=== PATIENT | female | born 1990 | race Caucasian/White ===

== ENCOUNTER 2016-12-21 17:53 | Inpatient (IN) ==
--- NOTE | 2016-12-21 17:12 | OB/GYN History & Physical ---
Date of Encounter: 12/21/16 Time of Encounter: 17:05 Assessment and Plan (1) 39 weeks gestation of Current visit: Yes Status: Acute Admit to labor and delivery for expectant management for vaginal delivery Patient is GBS negative Patient is planning an epidural for pain control Vaginal delivery is expected POC discussed with Dr Winston History of Present Illness Chief complaint: Contractions HPI: Ms. Harris is a 26 year old female at 39 weeks and 2 days gestation. She arives to labor and delivery with c/o contractions today at noon that were 5 minutes apart. She denies leaking of fluid, and vaginal bleeding. She states positive movement. She denies headahce, vision changes, and epigastric pain. She is GBS negative and her blood type in O positive. She has a history of MTHFR and states she has been taking a daily baby asprin. Past Med Surg Social Fam HX - Past Medical History Medical history: no medical history Psychiatric history: no psych history - Social History Smoking Status: Never smoker Smokeless Tobacco Status: No Alcohol use: none Drug use: none - Family History Mother Hx Family Cardiac Disorders: Yes (HTN, heart attack) Obstetrical History - Pregnancies : 4 Para: 1 Term: 1 : 0 Ab's: 2 Livin Medications and Allergies Aspirin [Aspirin] 1 tab PO DAILY 12/21/16 [History] Folic Acid [Folic Acid] 1 tab PO DAILY 12/21/16 [History] Vit/Iron Fumarate/FA [ Tablet] 1 tab PO DAILY 12/21/16 [History ] Allergies No Known Allergies Allergy (Verified 12/21/16 16:56) Review of System OB All systems PM: reviewed and no additional remarkable complaints except as stated Exam - Constitutional Constitutional: well developed, well nourished, no acute distress, average body habitus - HEENT HEENT: Normocephaly, Mucus Membranes Moist - Neck Neck exam: full ROM, normal inspection, supple - Lungs Respiratory exam: CTAB - Cardiovascular Cardiovascular exam: RRR, +S1, +S2 - Abdomen Abdomen: Present: bowel sounds normal, gravid, non tender - Extremities Extremities exam: full ROM, normal inspection, radial pulses palpable and symetrical Deep Tendon Reflex Grade: 2+ Normal - Vagina Vagina: Present: normal moisture - Cervix Dilation: 4 (per RN exam) Effacement: 90 (per RN exam) Station: -1 - Uterus Uterus exam: Present: normal size, normal contour Results All other labs normal.
[~2016-12-21 17:53] MED LIST: D5% in 0.45% NACL 1,000 ML IVC SCH; Famotidine 20 MG/2 ML VIAL IVP PRN; Naloxone 0.4 MG/ML INJ IVP PRN; Ringers Solution, Lactated 1,000 ML IVC SCH
[2016-12-21 18:03] LABS: Basophils # 0.1 K/mcL (0.0-0.2); Basophils % 0.2 %; Eosinophils % 0.1 %; Hematocrit 40.3 % (35.3-44.9); Hemoglobin 13.6 g/dL (11.5-15.4); Immature Granulocytes % 0.7 % (0-4); Immature Platelets 6.7 % (1.1-6.1); Lymphocytes # 2.6 K/mcL (0.6-4.6); Lymphocytes % 12.6 %; Mean Corpuscular HGB Conc 33.7 g/dL (31.6-35.5); Mean Corpuscular Hemoglobin 30.8 pg (28.0-33.3); Mean Corpuscular Volume 91.2 fL (83.0-100.0); Mean Platelet Volume 10.3 fL (9.4-12.4); Monocytes # 1.4 K/mcL (0.0-1.3); Monocytes % 6.8 %; Neutrophils # 16.4 K/mcL (1.6-8.9); Platelet Count 191 K/mcL (140-400); Red Blood Count 4.42 M/mcL (3.82-4.97); Red Cell Distribution Width 12.9 % (11.5-14.5); Segmented Neutrophils % 79.6 %
--- NOTE | 2016-12-21 18:28 | Anesthesia Evaluation PreOp ---
Date of Encounter: 12/21/16 Time of Encounter: 18:26 - Past History Planned Operation: ZENA Cardiac History: Denies any Significant Hx Pulmonary History: Denies Any Significant HX HAIRSPRING STUDDER History: Denies Any Significant HX Other Medical History: Denies Any Significant HX Anesthesia History: No Prior Anesthetic Complications (denies personal h/o complications with GA or NA; denies family h/o anesthesia complications), Past Anesthesia (T&A, ZENA) : Yes Test: Positive Alcohol Use: none Drug use: none Medications and Allergies Aspirin [Aspirin] 1 tab PO DAILY 12/21/16 [History] Folic Acid [Folic Acid] 1 tab PO DAILY 12/21/16 [History] Vit/Iron Fumarate/FA [ Tablet] 1 tab PO DAILY 12/21/16 [History ] Allergies No Known Allergies Allergy (Verified 12/21/16 16:56) - Meds/Allergy Pre-op Review Medications Reviewed: Yes Allergies Reviewed: Yes Beta Blockers on Current Med List: No Anesthesia Results - Labs 12/21/16 17:55 Anesthesia Exam 120/66, HR78, RR16 O2 Sat Height 1.75 m Weight 84.3 kg NPO (# of Hours): NPO solids since 12/21 @1200 Pain Scale: 8 Pain Scale Used: Numeric (1 - 10) - HEENT Pupil (Motor): Pupils equal Mallampati: II Teeth: Normal Oral Opening: Greater than 3 - HAIRSPRING STUDDER LOC: Oriented HAIRSPRING STUDDER Motor: Normal RUE, Normal LUE, Normal RLE, Normal LLE, Normal Face HAIRSPRING STUDDER Sensory: Normal: RUE, LUE, RLE, LLE, Face - Cardiac Rhythm: Regular Murmur: None - Pulmonary Breath Sounds: bilateral Clear Respiratory Effort: Symmetrical Anesthesia Assess/Plan ASA Score: 2 Modified Stephan Scale for Level of Consciousness: Cooperative, oriented, and tranquil Anesthetic Plan: Regional Autologous Blood: No Monitoring Plan: Standard Monitors Recovery Plan: Other
[2016-12-21] MEDS ORDERED: Bupivacaine-MPF 0.25% 10 ML VIAL EP ONE (18:30)
[2016-12-21] MEDS ORDERED: Epidural Premix (fent/bupiv) 110 ML EP SCH (18:30)
[2016-12-21] MEDS ORDERED: *HR* FentaNYL (PF) 100 MCG/2 ML VIAL EP ONE (18:30)
[2016-12-21] MEDS ORDERED: Epidural Premix (fent/bupiv) 110 ML EP ONE (18:33)
[2016-12-21] MEDS ORDERED: *HR* FentaNYL (PF) 100 MCG/2 ML VIAL ONE (18:33)
[2016-12-21] MEDS ORDERED: Bupivacaine-MPF 0.25% 10 ML VIAL ONE (18:33)
--- NOTE | 2016-12-21 19:50 | Anesthesia Procedures ---
Date of Encounter: 12/21/16 Time of Encounter: 19:27 (in room) Procedures: Anesthesia - Epidural/Spinal Patient ID/Chart reviewed: Yes Patient examined: Yes OB Eval: Gestational age: 39 weeks 1 day OB Eval: : 4 OB Eval: Hx Para: 1 OB Eval: Dilated at (cm): 4 OB Eval: Contractions: Non-stressed pattern Consent Obtained: Yes Supplemental Oxygen: None/Room Air Site Prep: Aseptic Technique, Sterile prep and drape, Povidone-Iodine 1% Patient position: upright Local Anesthetic: Lidocaine 1% Amount of Local Anesthetic used: 3 Touhy Needle Gauge: 18 Touhy Needle Depth (cm): 4 Catheter Depth at Skin (cm): 11 (placed at 1933) Test Dose (1.5% Lido + Epi): Volume given (mls): 5 (given in 2 equally divided doses over a period of 5 min) Test Dose Result: Negative Loading Dose: 0.25% Marcaine (mls): 5 Loading Dose: Fentanyl (mcg): 100 Loading Dose Administered: Thru Catheter Infusion Med: 0.125% Bupivacaine w/ 2 mcg/ml Fentanyl Infusion Rate (mls/hr): 13 (w/ demand bolus of 4mL q20min) Catheter Secured in Place: Tegaderm, Tape Interspace Used: L4-L5 Loss of Resistance (ELMER): Yes Blood: No CSF: No Paresthesia: Yes (LLE) Vitals + FHT's: please see L&D RN's documentation
--- NOTE | 2016-12-21 20:00 | OB Labor Progress Note ---
Date of Encounter: 12/21/16 Time of Encounter: 19:58 Labor Progress Note - Subjective Subjective: Patient resting in bed comfortably after epidural. - Cervix Cervix: 7-8/90/0 - Heart Tones Heart Tones: 140's moderate variabily wth 15 x 15 accels and no decels noted. - Rossmore Rossmore: contractions every 2-3 minutes lasting about 60 seconds. uterus palpates moderate with contractions and soft in between contractions. - Interventions Interventions: AROM for moderate amount of clear fluid. - Plan Plan: Continue expectant management Vaginal delivery expected POC discussed with Dr Winston.
--- NOTE | 2016-12-22 00:40 | OB/GYN Procedure Note ---
Delivery - Delivery Date: 12/22/16 Provider: Selvin Winston (Shandra Wise, ALBERTINA assist) Intrapartum events: none Delivery induction: none Delivery augmentation: rupture of membranes Delivery monitor: external FHT, external uterine Anesthesia: epidural Estimated Blood Loss: 300 - (s) A Delivery Date: 12/22/16 Delivery Time: 00:14 Presentation: vertex Position: CATALINO Route of delivery: Gender: Female Viability: Viable Pounds: 8 Ounces: 10 Weight Gram: 3925 kg at 1 minute: 8 at 5 mins: 9 Shoulder Dystocia: not encountered Specimens collected: cord blood Placenta: spontaneous Cord: 3 umbilical vessels ( ) - Repair Episiotomy: none Laceration Description: Perineal - 1st Degree (hemostatic) - Complications Delivery complications: none - Disposition Mom disposition: stable in LDR [place] disposition: stable in LDR
--- NOTE | 2016-12-22 00:50 | Event Note ---
Date of Encounter: 12/21/16 Time of Encounter: 00:49 Vaginal Delivery Note: Spontaneous vaginal delivery of viable female infant over 1st degree hemostatic perineum. delivered in CATALINO position. No shoulder dytocia and no nuchal cord present upon delivery. Spontaneous placental delivery intact upon inspection with 3 vessel cord. apgars of 8 and 9 at 1 and 5 minutes. EBL of 300mL. Dr. Winston present in room during delivery.
[2016-12-22] MEDS ORDERED: Acetaminophen 325 MG TABLET PO PRN (01:07)
[2016-12-22] MEDS ORDERED: Oxytocin 20 units/ LR 1000 mL 20 UNIT/1,000 ML BAG IVC SCH (01:07)
[2016-12-22] MEDS ORDERED: Oxytocin 20 units/ LR 1000 mL 20 UNIT/1,000 ML BAG IVC ONE (01:20)
[2016-12-22] MEDS: Prenatal Vit/FA 1 EACH TABLET PO SCH (08:11)
[2016-12-22] MEDS: Ibuprofen 600 MG TABLET PO PRN ×2 (14:20→20:14)
[2016-12-23 07:49] VITALS: BP 103/55
[2016-12-23] MEDS: Prenatal Vit/FA 1 EACH TABLET PO SCH (08:16)
[2016-12-23] MEDS: Ibuprofen 600 MG TABLET PO PRN (08:17)
--- NOTE | 2016-12-23 08:59 | Discharge Summary ---
Date of Encounter: 12/23/16 Time of Encounter: 08:58 - Discharge Diagnosis (1) (normal spontaneous vaginal delivery) Priority: Primary Status: Acute - Discharge Medications Prescriptions: Ibuprofen [Motrin] 600 mg PO Q6HR PRN #40 tablet PRN Reason: Cramping Home Medications: Aspirin [Aspirin] 1 tab PO DAILY 12/21/16 [History] Folic Acid [Folic Acid] 1 tab PO DAILY 12/21/16 [History] Vit/Iron Fumarate/FA [ Tablet] 1 tab PO DAILY 12/21/16 [History ] Ibuprofen [Motrin] 600 mg PO Q6HR PRN #40 tablet 12/23/16 [Rx] Allergies/Adverse Reactions: Allergies No Known Allergies Allergy (Verified 12/21/16 16:56) Data Procedures and tests throughout hospitalization: Laboratory Tests 12/21/16 17:55 WBC 20.6 H RBC 4.42 Hgb 13.6 Hct 40.3 MCV 91.2 MCH 30.8 MCHC 33.7 RDW 12.9 Plt Count 191 MPV 10.3 Immature Gran % 0.7 Seg Neutrophils % 79.6 Lymphocytes % 12.6 Monocytes % 6.8 Eosinophils % 0.1 Basophils % 0.2 Neutrophils # 16.4 H Lymphocytes # 2.6 Monocytes # 1.4 H Eosinophils # 0.0 Basophils # 0.1 Immature Plt Fraction 6.7 H - Impressions Doing well without c/o. Date of admission: 12/21/16 17:53 Primary care physician: Abbie Tovar CNP Consults: 12/22/16 01:07 Consult to Schedule Announcer [CONS] Routine Comment: Vaginal delivery, consult needed - Patient Status Disposition: Home, Self-Care Condition: Good Functional capacity at discharge: independent ambulation Overall status at discharge: patient is progressing back to baseline - Discharge Instructions Follow Up With: Joseph Bloom MD [Partnered Physician] - - Diet and Activity Activity: increase activity as tolerated Hospital Course LOADER [employer] Time Attestation: Total time spent providing and/or coordinating discharge services: Exam - Constitutional Vitals: Temp Pulse Resp BP Pulse Ox 97.8 F 62 20 103/55 98 12/23/16 07:48 12/23/16 07:48 12/23/16 07:48 12/23/16 07:48 12/23/16 07:48 General appearance IM: A&O X 3 - Respiratory Respiratory exam: Present: CTAB - Cardiovascular Cardiovascular exam IM: Present: RRR - GI/Abdominal GI/Abdominal exam IM: normal bowel sounds - Uterus Position: 2 Fingers Below Umbilicus - Extremities Exam Extremities exam IM: Present: full ROM - Neurological Exam Neurological exam: oriented X3 - VTE Reasons for not Prescribing Prophylaxis: Treatment not Indicated - Low risk for VTE
== END 2016-12-23 12:07 | disposition home or self-care (01) | DRG 775 ==
LOC: 1NENULAB → 1NENUOBS 12-22 02:17

== ENCOUNTER 2019-04-24 09:42 | Inpatient (IN) ==
[2019-04-24] MEDS ORDERED: Metoclopramide 10 MG/2 ML VIAL IVP PRN (10:01)
[2019-04-24] MEDS ORDERED: Ondansetron 4 MG/2 ML VIAL IVP PRN (10:01)
[2019-04-24] MEDS ORDERED: Naloxone 0.4 MG/ML INJ IVP PRN (10:01)
[2019-04-24] MEDS ORDERED: *HR* Nalbuphine 10 MG/ML AMPUL IVP PRN (10:01)
[2019-04-24] MEDS ORDERED: Famotidine 20 MG/2 ML VIAL IVP PRN (10:01)
[2019-04-24] MEDS ORDERED: Oxytocin 20 units/ LR 1000 mL 20 UNIT/1,000 ML BAG IVC SCH ×2 (10:15→17:42)
[2019-04-24] MEDS: Ringers Solution, Lactated 1,000 ML IVC SCH ×2 (11:10→14:30)
[2019-04-24 11:19] LABS: Basophils % 0.2 %; Eosinophils # 0.1 K/mcL (0.0-0.6); Eosinophils % 0.8 %; Hematocrit 36.9 % (35.3-44.9); Hemoglobin 12.7 g/dL (11.5-15.4); Immature Granulocytes % 0.7 % (0-4); Lymphocytes # 1.9 K/mcL (0.6-4.6); Lymphocytes % 14.8 %; Mean Corpuscular HGB Conc 34.4 g/dL (31.6-35.5); Mean Corpuscular Hemoglobin 31.2 pg (28.0-33.3); Mean Corpuscular Volume 90.7 fL (83.0-100.0); Mean Platelet Volume 10.4 fL (9.4-12.4); Monocytes # 0.9 K/mcL (0.0-1.3); Monocytes % 6.6 %; Neutrophils # 10.1 K/mcL (1.6-8.9); Platelet Count 200 K/mcL (140-400); Red Blood Count 4.07 M/mcL (3.82-4.97); Red Cell Distribution Width 13.2 % (11.5-14.5); Segmented Neutrophils % 76.9 %; White Blood Count 13.1 K/mcL (4.3-11.1)
[2019-04-24 11:28] LABS: Amphetamine Screen,Urine Negative ng/mL (Cutoff=1000); Barbiturate Screen,Urine Negative ng/mL (Cutoff=200); Benzodiazepines Screen,Urine Negative ng/mL (Cutoff=200); Cannabinoid Screen,Urine Negative ng/mL (Cutoff = 50); Cocaine Screen,Urine Negative ng/mL (Cutoff= 300); Opiate Screen,Urine Negative ng/mL (Cutoff=300); Phencyclidine Screen,Urine Negative ng/mL (Cutoff=25)
[2019-04-24] MEDS ORDERED: Epidural Premix (fent/bupiv) 110 ML EP ONE (14:22)
[2019-04-24] MEDS ORDERED: Epidural Premix (fent/bupiv) 110 ML EP SCH (14:30)
[2019-04-24] MEDS ORDERED: *HR* HYDROcodone/Acet 5/325 mg TABLET PO PRN (17:42)
[2019-04-24] MEDS ORDERED: Acetaminophen 325 MG TABLET PO PRN (17:42)
[2019-04-24] MEDS ORDERED: Lanolin 7 G OINT...G. TP PRN (17:42)
[2019-04-24] MEDS ORDERED: Benzocaine/Menthol 56 GM AEROSOL SPRAY TP PRN (17:42)
[2019-04-24] MEDS ORDERED: Oxytocin 20 units/ LR 1000 mL 20 UNIT/1,000 ML BAG IVC ONE (17:44)
[2019-04-24] MEDS: Ibuprofen 600 MG TABLET PO PRN (21:49)
[2019-04-25] MEDS: Ibuprofen 600 MG TABLET PO PRN ×2 (03:58→11:33)
[2019-04-25] MEDS ORDERED: Prenatal Vit/FA 1 EACH TABLET PO SCH (09:00)
[2019-04-25 15:33] VITALS: BP 108/69
== END 2019-04-25 17:45 | disposition home or self-care (01) | DRG 807 ==
LOC: 1NENULAB 09:42 → 1NENUOBS 19:38
PROVIDERS: ADMIT Advanced Practice Midwife; ATTEND Advanced Practice Midwife